=== PATIENT | male | born 1955 ===

== ENCOUNTER 2017-06-11 08:25 | Outpatient (CLI) | payer BC ==
--- NOTE | 2017-06-11 09:09 | XRay Report ---
RIGHT SHOULDER RADIOGRAPHS INDICATION: Right shoulder pain. COMPARISON: None similar at this institution. FINDINGS: Limited frontal and Y views, 2 images suggest normal humeral head contour. Mild glenohumeral narrowing inferiorly and slight sclerosis though not excluded versus projectional. Grossly intact AC joint as also imaged right lung, ribs and scapula. Thoracic spondylosis. CONCLUSION: No acute right shoulder radiographic abnormality with few degenerative changes, as above. Thank you for the opportunity to participate in this patient's care.
== END 2017-06-11 08:26 | disposition home or self-care (01) ==
LOC: SPVIMAG 08:25
PROVIDERS: ATTEND Orthopaedic Surgery
DX: M19.011 Primary osteoarthritis, right shoulder (principal)